=== PATIENT | male | born 1975 | race Caucasian/White ===

== ENCOUNTER 2016-12-30 05:22 | Emergency (ER) | payer OTHER ==
--- NOTE | ~2016-12-30 | CR230 ---
[facility] A Service of [facility] RADIOLOGY TEXT RESULTS PATIENT: QUYNH MANZO LOCATION: [facility] : 73 UNIT #: [id number] AGE: [address]: Rodolfo Bellamy MD SEX: M ORDER DR: [id number] [facility] [address] [place], [place] [address] [id number] E MR#: [id number] Acc #: [id number] NAME: QUYNH MANZO. : 1975 SEX: M STUDY DATE/TIME: 12/30/2016 6:04 UNIT: [facility] ROOM: STUDY DESCRIPTION: CR Shoulder Min 2 View Rt Attending Physician: Rodolfo Bellamy M.D. Ordering Physician: Devi Vincent M.D. Primary Care Physician: Primary Care Physician No MEDICAL IMAGING REPORT This report is preliminary unless electronic signature is present EXAM Three views right shoulder INDICATION Pain in the right shoulder since yesterday. Patient was trying to lift some boxes. FINDINGS No acute fracture or subluxation of the right shoulder is identified. Patient is noted to have irregularity of the distal clavicle with joint space widening noted with perhaps some mild soft tissue swelling overlying this area. The findings are suspicious for an underlying infectious or inflammatory process. Etiologies such as erosive naturopathy and osteomyelitis would be in the differential. Erosive change can also be seen following trauma. Correlation with clinical presentation is recommended. 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 Findings are nonspecific but can be seen in both infectious and inflammatory etiologies, such as post-traumatic osteolysis, erosive arthropathy and osteomyelitis/septic arthritis. Please correlate with clinical presentation. Dictated by... Sera Muñoz M.D. THIS IS AN ELECTRONICALLY VERIFIED REPORT Sera Muñoz M.D. at 12/30/2016 3:[address] [facility] A Service of [facility] RADIOLOGY TEXT RESULTS PATIENT: QUYNH MANZO LOCATION: [facility] : 73 UNIT #: [id number] AGE: [address]: Rodolfo Bellamy MD SEX: M ORDER DR: Rusty TD: 12/30/2016 06:45 JOB #: [id number] MEDICAL IMAGING REPORT Page 1 of 1 COPY
[~2016-12-30 05:22] MED LIST: BACTRIM DS TABL1 TA2 PO; FLEXERIL10 MG PO; KEFLEX500 M1 PO; LORTAB 10-5001 EACH PO; LORTAB 5/500 TA1 TA1 PO; NAPROSYN375 MG PO; NAPROSYN500 MG PO; NEURONTIN600 MG DOB; NO MEDICATIONS; ORUDIS75 M1 PO; PAXIL PO; VICODIN 5/1 TAB 5/50 PO
== END 2016-12-30 06:55 | disposition home or self-care (01) ==
LOC: CED 05:22
DX: S43.401A Unspecified sprain of right shoulder joint, initial encounter (principal); S46.811A Strain of other muscles, fascia and tendons at shoulder and upper arm level, right arm, initial encounter; F17.200 Nicotine dependence, unspecified, uncomplicated; X58.XXXA Exposure to other specified factors, initial encounter; Y93.89 Activity, other specified; Y92.9 Unspecified place or not applicable
CPT/HCPCS: 73030; 99283